=== PATIENT | male | born 1945 | race Caucasian/White ===

== ENCOUNTER 2023-01-11 16:41 | Emergency (ER) | payer MEDICARE ==
[~2023-01-11] VITALS: Ht 175.3 cm; Wt 84.6 kg
[2023-01-11] MEDS ORDERED: PROSCAR5 MG PO (17:19)
[2023-01-11] MEDS ORDERED: MAGNESIUM400 MG PO (17:20)
[2023-01-11] MEDS ORDERED: NEURONTIN100 MG PO (17:20)
[2023-01-11] MEDS ORDERED: MIRAPEX0.125 MG PO (17:21)
[2023-01-11] MEDS ORDERED: METOPROLOL TART50 MG PO (17:21)
[2023-01-11] MEDS ORDERED: OMEPRAZOLE20 MG PO (17:22)
[2023-01-11] MEDS ORDERED: METFORMIN HCL500 MG PO (17:22)
[2023-01-11] MEDS ORDERED: ALLOPURINOL100 MG PO (17:22)
[2023-01-11] MEDS ORDERED: NITROGLYCERIN0.4 MG SL (17:23)
[2023-01-11] MEDS ORDERED: FLUOXETINE HCL20 MG PO (17:23)
[2023-01-11 17:34] LABS: BASOPHILS 0.8 % (0-2); EOSINOPHILS 1.4 % (0-6); HEMATOCRIT 41.5 % (35.0-50.0); HEMOGLOBIN 13.6 g/dL (12.0-18.0); LYMPHOCYTES 7.3 % (24-44); MCH 31.9 (27-36); MCHC 32.7 g/dl (30-36); MCV 97.7 fl (81-99); MONOCYTES 12.5 % (0-12); PLATELET COUNT 178 K/uL (140-440); RBC 4.25 M/ul (4.3-5.7); RDW 14.5 (10.5-15.0)
[2023-01-11 17:44] LABS: ALBUMIN 3.8 g/dL (3.4-5.0); ALBUMIN/GLOBULIN RATIO 0.93 (1.1-2.4); ANION GAP 13.6 (7-21); BUN/CREATININE RATIO 13.04 (6.0-28.6); CREATININE, SERUM 1.15 mg/dL (0.70-1.30); MAGNESIUM 1.8 mg/dL (1.8-2.4); POTASSIUM 4.6 mmol/L (3.5-5.1); PROTEIN, TOTAL 7.9 g/dL (6.4-8.2)
[2023-01-11 17:56] LABS: BILIRUBIN, URINE NEGATIVE (negative); BLOOD/HGB, URINE NEGATIVE (Negative); KETONE, URINE NEGATIVE (Negative); LEUK ESTERASE, URINE NEGATIVE (negative); NITRITE, URINE NEGATIVE (negative)
[2023-01-11 18:04] LABS: BACTERIA, URINE NONE SEEN /hpf (negative); CASTS, URINE NONE SEEN \\lpf; COLLECTION TYPE, URINE CLEAN CATCH; CRYSTALS, URINE NONE SEEN (0-1+); EPITHELIAL CELLS, URINE SQUAMOUS 2+ /lpf (0-1+); REFLEX CULTURE, URINE No (No)
[2023-01-11 18:34] LABS: INFLUENZA B NAA NEGATIVE (NEGATIVE); RESPIRATORY SYNCYTIAL VIR NAA NEGATIVE (NEGATIVE)
[2023-01-11 19:00] VITALS: BP 107/94
--- NOTE | 2023-01-11 22:26 | EKG ---
[facility] [address] [facility] [place] [address] Signed Atrial fibrillation Rightward axis Cannot rule out Inferior infarct , age undetermined Abnormal ECG No previous ECGs available Confirmed by Garret Russell MD () on 01/11/2023 10:26:03 PM Electronically Signed By: GARRET RUSSELL MD 01/11/232225 PATIENT NAME: SANKET AVILA Electrocardiogram DATE OF : 41 PHYSICIAN: GARRET RUSSELL MD REPORT #: [id number] REPORT IS CONFIDENTIAL AND NOT TO BE RELEASED WITHOUT AUTHORIZATION
== END 2023-01-11 19:01 | disposition home or self-care (01) ==
LOC: ED 16:41
PROVIDERS: Emergency Medicine
DX: J10.1 Influenza due to other identified influenza virus with other respiratory manifestations (principal); U07.1 COVID-19; E10.9 Type 1 diabetes mellitus without complications; I10 Essential (primary) hypertension; J44.9 Chronic obstructive pulmonary disease, unspecified; Z95.1 Presence of aortocoronary bypass graft; Z88.8 Allergy status to other drugs, medicaments and biological substances; Z79.899 Other long term (current) drug therapy
CPT/HCPCS: 36415; 71045; 80053; 81001; 83735; 84484; 85025; 87502; 93005; 93010; C9803; J2405; U0002

== ENCOUNTER 2023-06-30 04:11 | Emergency (ER) | payer MEDICARE ==
[~2023-06-30] VITALS: Ht 175.3 cm; Wt 82.5 kg
[~2023-06-30 04:11] MED LIST: ALLOPURINOL100 MG PO; BUPROPION HCL100 MG PO; FERROUS SULFAT324 MG PO; FLUOXETINE HCL20 MG PO; FLUTICASONE-SA1 EAC4 INH; IRON CHEWS15 MG PO; LANTUS SOL100 UNIT/1 SUB-Q; LASIX20 MG PO; LISINOPRIL40 MG PO; MAGNESIUM400 MG PO; MECLIZINE HCL25 MG PO; METFORMIN HCL500 MG PO; METOPROLOL TART50 MG PO; MIRAPEX0.125 MG PO; NEURONTIN100 MG PO; NITROGLYCERIN0.4 MG SL; OMEPRAZOLE20 MG PO; PRAMIPEXOLE0.125 MG PO; PROSCAR5 MG PO
--- OUTSIDE RECORDS SUMMARY | 2023-06-30 04:14 | XMS ---
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 E.D. VISIT COUNT (12 MO.) 5 CINDY Mendoza TOTAL 7 NOTE: Visits indicate total known visits. ED/UCC VISIT TRACKING (12 MO.) 06/30/2023 04:12 CINDY [place] TYPE: Emergency COMPLAINT: - MEDICAL 06/08/2023 14:49 Legjuan a Mendoza [place] TYPE: Emergency DIAGNOSES: - Unspecified abdominal pain - FLANK PAIN 05/25/2023 16:04 Juan Diego [place] TYPE: Emergency DIAGNOSES: - Chronic obstructive pulmonary disease, unspecified - Dyspnea, unspecified - Heart failure, unspecified - SOB 04/11/2023 10:39 CINDY [place] TYPE: Emergency COMPLAINT: - R SIDE FACE WOUND, L KNEE PAIN 03/24/2023 07:52 CINDY [place] TYPE: Emergency COMPLAINT: - DIARRHEA DIAGNOSES: - Allergy status to other drugs, medicaments and biological substances - Atherosclerotic heart disease of [place] coronary artery without angina pectoris - Chronic obstructive pulmonary disease, unspecified - Contact with and (suspected) exposure to COVID-19 - Diarrhea, unspecified - Essential (primary) hypertension - FDC (current) use of insulin - FDC (current) use of oral hypoglycemic drugs - Other superintendent container terminal (current) drug therapy - Presence of aortocoronary bypass graft - Type 2 diabetes mellitus without complications 02/15/2023 09:28 CINDY [place] TYPE: Emergency COMPLAINT: - DIZZINESS DIAGNOSES: - Allergy status to other drugs, medicaments and biological substances - Chronic obstructive pulmonary disease, unspecified - Dizziness and giddiness - Essential (primary) hypertension - Hyperlipidemia, unspecified - medical terminologist (current) use of oral hypoglycemic drugs - Other superintendent container terminal (current) drug therapy - Type 2 diabetes mellitus without complications - Unspecified atrial fibrillation 01/11/2023 16:43 CINDY [place] TYPE: Emergency COMPLAINT: - WEAKNESS DIAGNOSES: - Allergy status to other drugs, medicaments and biological substances - Chronic obstructive pulmonary disease, unspecified - COVID-19 - Essential (primary) hypertension - Influenza due to other identified influenza virus with other respiratory manifestations - Other assisted (current) drug therapy - Presence of aortocoronary bypass graft - Type 1 diabetes mellitus without complications - Weakness INPATIENT VISIT TRACKING (12 MO.) No inpatient visits to display in this time frame [email or web address]
[2023-06-30 04:23] LABS: BASOPHILS 0.2 % (0-2); EOSINOPHILS 0.8 % (0-6); HEMATOCRIT 36.8 % (35.0-50.0); LYMPHOCYTES 5.5 % (24-44); MCH 32.4 (27-36); MCHC 32.6 g/dl (30-36); MCV 99.3 fl (81-99); MONOCYTES 5.2 % (0-12); NEUTROPHILS 88.3 % (39-80); PLATELET COUNT 197 K/uL (140-440); RBC 3.71 M/ul (4.3-5.7); RDW 14.2 (10.5-15.0)
[2023-06-30] MEDS ORDERED: ATROPINE SULFATE 1 MG/10 ML SYR IV ONE (04:30)
[2023-06-30] MEDS ORDERED: FAMOTIDINE 20 MG/ 2 ML VIAL IV ONE (04:30)
[2023-06-30 04:48] LABS: ALCOHOL, MEDICAL <3 ng/dL (<3); MAGNESIUM 2.2 mg/dL (1.8-2.4); TSH, 3RD GENERATION 4.263 uIU/mL (0.358-3.740)
[2023-06-30 05:00] LABS: ALBUMIN 3.5 g/dL (3.4-5.0); ALBUMIN/GLOBULIN RATIO 0.97 (1.1-2.4); ANION GAP 17.9 (7-21); BILIRUBIN, TOTAL 1.1 ng/dL (0.2-1.0); BUN/CREATININE RATIO 19.57 (6.0-28.6); CALCIUM 8.7 mg/dL (8.5-10.1); CREATININE, SERUM 2.81 mg/dL (0.70-1.30); POTASSIUM 5.9 mmol/L (3.5-5.1); PROTEIN, TOTAL 7.1 g/dL (6.4-8.2)
[2023-06-30 05:15] LABS: INFLUENZA B NAA NEGATIVE (NEGATIVE); RESPIRATORY SYNCYTIAL VIR NAA NEGATIVE (NEGATIVE)
[2023-06-30] MEDS ORDERED: FUROSEMIDE 40 MG/4 ML VIAL IV ONE (05:30)
[2023-06-30] MEDS ORDERED: CALCIUM GLUCONATE 2,000 MG in DEXTROSE 5% 100 ML IV ONE (05:45)
[2023-06-30] MEDS ORDERED: CALCIUM GLUCONATE 1,000 MG/10 ML VIAL ONE (05:47)
[2023-06-30] MEDS ORDERED: ALBUTEROL SULFATE 0.5% 2.5 MG/0.5 ML VIAL INH ONE (06:15)
[2023-06-30 08:17] VITALS: BP 104/52
--- NOTE | 2023-07-01 00:55 | EKG ---
[facility] [address] [facility] [place] [address] Signed Atrial fibrillation with slow ventricular response Possible Anterior infarct , age undetermined ST \T\ T wave abnormality, consider lateral ischemia Abnormal ECG When compared with ECG of 15-FEB-2023 09:42, Vent. rate has decreased BY 27 BPM Borderline criteria for Inferior infarct are no longer present ST now depressed in Anterior leads T wave inversion now evident in Anterior leads Confirmed by NITHIN HERNÁNDEZ MD ([id number]) on 07/01/2023 12:55:39 AM Electronically Signed By: NITHIN HERNÁNDEZ 07/01/23 0055 PATIENT NAME: SANKET AVILA Electrocardiogram DATE OF : 41 PHYSICIAN: NITHIN HERNÁNDEZ REPORT #: [id number] REPORT IS CONFIDENTIAL AND NOT TO BE RELEASED WITHOUT AUTHORIZATION
== END 2023-06-30 08:08 | disposition short-term general hospital (02) ==
LOC: ED 04:11
PROVIDERS: Internal Medicine
DX: I48.91 Unspecified atrial fibrillation (principal); E87.5 Hyperkalemia; T68.XXXA Hypothermia, initial encounter; R11.2 Nausea with vomiting, unspecified; R00.1 Bradycardia, unspecified; E11.9 Type 2 diabetes mellitus without complications; I10 Essential (primary) hypertension; E78.5 Hyperlipidemia, unspecified; J44.9 Chronic obstructive pulmonary disease, unspecified; X31.XXXA Exposure to excessive natural cold, initial encounter; Z88.8 Allergy status to other drugs, medicaments and biological substances; Z79.4 Long term (current) use of insulin; Z79.84 Long term (current) use of oral hypoglycemic drugs; Z79.899 Other long term (current) drug therapy
CPT/HCPCS: 71045; 80053; 83735; 83880; 84443; 84484; 85025; 87502; 93005; 93010; 96365; 96375; 99285-25; G0480; J0461; J0612; J1940; U0002

== ENCOUNTER 2025-01-22 16:58 | Inpatient (IN) | payer MEDICARE ==
[~2025-01-22] VITALS: Ht 175.3 cm; Wt 81.9 kg
--- NOTE | ~2025-01-22 | EKG ---
[facility] [address] [facility] [place], [place] [address] Draft EK completed, results pending confirmation PATIENT NAME: AUSTINSANKET Electrocardiogram DATE OF : 41 PHYSICIAN: PRELIMINARY REPORT #: [id number] REPORT IS CONFIDENTIAL AND NOT TO BE RELEASED WITHOUT AUTHORIZATION
[2025-01-22 18:00] LABS: BASOPHILS 0.4 % (0.2-1.2); EOSINOPHILS 1.6 % (0.8-7.0); LYMPHOCYTES 6.8 % (21.8-53.1); MCH 30.6 PG (25.7-32.2); MCHC 31.9 g/dL (32.3-36.5); MCV 95.8 fL (79.0-92.2); MONOCYTES 7.8 % (5.3-12.2); NEUTROPHILS 83.2 % (34.0-67.9); RBC 3.60 M/uL (4.63-6.08)
[2025-01-22 18:34] LABS: ALT (SGPT) 25.0 U/L (14-59); AST (SGOT) 28.0 U/L (15-37); GLOMERULAR FILTRATION RATE,EST 45.0 mL/min (>60); PROTEIN, TOTAL 8.1 g/dL (6.4-8.2); UREA NITROGEN 36.0 mg/dL (7-18)
[2025-01-22] MEDS ORDERED: FUROSEMIDE 100 MG/10 ML VIAL IV ONE (19:00)
[2025-01-22] MEDS ORDERED: POTASSIUM CHLORIDE 20 MEQ/15 ML CUP PO ONE (19:00)
[2025-01-22] MEDS ORDERED: PANTOPRAZOLE SODIUM 40 MG TABEC PO SCH (19:23)
[2025-01-22] MEDS ORDERED: FLUOXETINE HCL 20 MG CAP PO SCH (19:25)
[2025-01-22] MEDS ORDERED: ACETAMINOPHEN 325 MG TAB PO PRN (19:30)
[2025-01-22] MEDS ORDERED: MAGNESIUM SULFATE 2 GM/50 ML BAG IV ONE (19:45)
--- NOTE | 2025-01-22 20:35 | NUR ---
PT ARRIVES TO FLOOR VIA STRETCHER. PT ABLE TO STAND AND PIVOT TO BED WITH 1 PA. TOLERATED WELL. PT PROVIDED WITH ICE WATER. GRIP WRAPPER AT BEDSIDE COMPLETING ADMISSION. SCHEDULED MEDICATIONS ADMINISTERED. PT REPORTS PAIN 8/10TO BLE'S, PRN ADMINISTERED. PT DENIES FURTHER NEEDS AT THIS TIME. CALL LIGHT IN REACH AND GRIP WRAPPER REMAINS AT BEDSIDE.
[2025-01-22 20:37] VITALS: BP 129/77
[2025-01-22] MEDS ORDERED: GABAPENTIN 100 MG CAP PO SCH (21:00)
[2025-01-22] MEDS ORDERED: IBLOOD GLUCOSE TEST STRIP 1 EA TEST VI SCH (21:00)
[2025-01-22] MEDS ORDERED: INSULIN LISPRO 100 UNIT/ML ML SUB-Q SCH (21:00)
[2025-01-22] MEDS ORDERED: PRAMIPEXOLE DIHYDROCHLORIDE 0.25 MG TAB PO SCH (21:00)
[2025-01-22] MEDS ORDERED: ALBUTEROL SULFATE 0.083% 3 ML VIAL INH PRN (22:00)
--- NOTE | 2025-01-22 22:11 | NUR ---
PT ASSESSMENT COMPLETE. PT REPORTS PAIN IMPROVED TO 5/10 AFTER PRN ADMINISTRATION. PT REPORTS OCCASIONAL SOB, EDY AFTER MOVEMENT. O2 IN PLACE AT 2LPM VIA NC, CHRONIC FOR PT @ NOC. OCCASIONAL COUGH NOTED URING ASSESSMENT. PT REPORTS PHELGM PRODUCTION. LUNGS CLEAR TO AUSCLTATION. PT DENIES NAUSEA. 3+ PITTING EDEMA PRESENT TO BLE'S. PT REPORTS THIS HAS BEEN ONGOING FOR APPROXIMATELY 6 WEEKS. BLE'S WITH GENERALIZED REDNESS UP TO LEVEL OF THE THIGHS. PT STATES THIS IS ONGOING WELL BUT HAS WORSENED RECENTLY. PT REPORTS CHRONIC NEUROPATHY TO BLE'S. PT ICE WATER SLIGHTLY REFILLED. CHF EDUCATION PROVIDED. PT DENIES FURTHER QUESTIONS, CONCERNS, OR NEEDS AT THIS TIME. CALL LIGHT IN REACH.
--- NOTE | 2025-01-22 22:37 | NUR ---
PT ROUNDING, PT RESTING IN BED ON R SIDE. DOES NOT WAKE WHILE WATER QUALITY TECHNICIAN AT DOORWAY. CALL LIGHT IN REACH.
--- NOTE | 2025-01-22 23:15 | NUR ---
DRIVING TEACHER TO ROOM FOR BED ALARM SOUNDING. PT SITTING AT EDGE OF BED, STATES THAT HE NEEDS TO USE THE URINAL. PT STOOD AT EDGE OF BED AND USED THE URINAL WITH 1PA, TOLERATED WELL. EDUCATION PROVIDED RE: CALL LIGHT USE. PT STATES UNDERSTANDING. FURTHER NEEDS DENIED AT THIS TIME. CALL LIGHT IN REACH.
[2025-01-23] VITALS (12 sets, daily range): BP systolic 105–122; BP diastolic 56–77
--- NOTE | 2025-01-23 00:46 | NUR ---
PT ROUNDING. PT RESTING IN BED WITH EYES CLOSED. RESPIRATIONS EVEN AND UNLABORED. O2 IN PLACE. HR 77 PER TELEMETRY. PT DOES NOT WAKE WHILE TAWER AT DOORWAY. CALL LIGHT IN REACH.
--- NOTE | 2025-01-23 01:33 | NUR ---
PT UTILIZES CALL LIGHT, REQUESTS TO STAND AT EDGE OF BED TO USE THE URINAL. PT UP AND BACK TO BED WITH 1 PA. TOLERATED WELL. DENIES SHORTNESS OF BREATH WHILE UP. PT ASSESSMENT COMPLETE. PT SITS UP ON EDGE OF BED FOR ASSESSMENT, TOLERATED WELL. PT REPORTS PAIN TO BLE'S REMAINS 5/10, STATES THIS IS TOLERABLE. DENIES NAUSEA. OCCASIONAL COUGH REMAINS PRESENT DURING ASSESSMENT, PT REPORTS PRODUCTIVE. O2 IN PLACE AT 2LPM VIA NC. TELE #[address], AFIB, HR 70'S-80'S. BLE'S REMAIN RED WITH 3+ EDEMA PRESENT. UNCHANGED FROM PREVIOUS. PT ASSISTED TO LAY BACK IN BED. FEET ELVATED ON PILLOWS. PT REQUESTS POPSICLE, PROVDIDED. DENIES FURTHER NEEDS AT THIS TIME. CALL LIGHT IN REACH. BED ALARM ACTIVE.
--- NOTE | 2025-01-23 03:00 | NUR ---
PT UTILIZES CALL LIGHT, REQUESTS TO GET UP TO CHAIR. CHAIR ALARM PLACED. PT TRANSFERED TO CHAIR WITH 1 PA TOLERATED WELL. FEET ELEVATED ON PILLOWS. PT DENIES FURTHER NEEDS. CALL LIGHT AND PERSONAL ITEMS PLACED WITHIN REACH.
--- NOTE | 2025-01-23 04:13 | NUR ---
PT ROUNDING. PT RESTING IN CHAIR WITH EYES CLOSED. RESPIRATIONS EVEN AND UNLABORED. PT DOES NOT WAKE WHILE DIALYSIS RN AT BEDSIDE. CALL LIGHT IN REACH.
--- NOTE | 2025-01-23 04:55 | NUR ---
PT UTILIZES CALL LIGHT, STATES THAT HE SPILLED SOME WATER ON HIS BLANKET. NEW WARM BLANKET PROVIDED. VS OBTAINED, WNL. PT REQUESTS POPSICLE. DENIES FURTHER NEEDS. CALL LIGHT IN REACH.
[2025-01-23 05:27] LABS: BASOPHILS 0.4 % (0.2-1.2); EOSINOPHILS 1.9 % (0.8-7.0); LYMPHOCYTES 5.3 % (21.8-53.1); MCH 30.6 PG (25.7-32.2); MCHC 31.7 g/dL (32.3-36.5); MCV 96.7 fL (79.0-92.2); MONOCYTES 13.6 % (5.3-12.2); NEUTROPHILS 78.6 % (34.0-67.9); RBC 3.30 M/uL (4.63-6.08)
[2025-01-23 05:44] LABS: GLOMERULAR FILTRATION RATE,EST 46.0 mL/min (>60); UREA NITROGEN 34.0 mg/dL (7-18)
--- NOTE | 2025-01-23 07:02 | NUR ---
RECIEVED REPORT FROM NATALIO LOPEZ. PT IS RESTING IN CHAIR WITH EYES CLOSED. RR EVEN AND UNLABORED. CALL LIGHT AND PERSONAL BELONGINGS ARE WITHIN REACH.
[2025-01-23] MEDS ORDERED: FLUOXETINE HCL 10 MG CAP PO SCH (09:00)
[2025-01-23] MEDS ORDERED: FUROSEMIDE 40 MG TAB PO SCH (09:00)
--- NOTE | 2025-01-23 09:00 | NUR ---
PT'S BP MEDICATON WITHOUT PARAMATERS. PT BP THIS AM 112/70. PLACED CALL TO DR. HERNÁNDEZ CLARIFY ORDERS. GAVE ORDERS TO GIVE PT HALF OF MORNING AMLODIPINE, AND THE FULL DOSE OF LASIX. NO FURTHER ORDERS. PHONE CALL ENDED.
--- NOTE | 2025-01-23 11:09 | NUR ---
PT RESTING IN CHAIR, TALKING ON PHONE. BLE ELEVATED. CALL LIGHT AND PERSONAL BELONGINGS ARE WITHIN REACH.
[2025-01-23] MEDS ORDERED: PHARMACY RENAL DOSE ADJUSTMENT 1 DOSE MISC PO SCH (12:00)
--- NOTE | 2025-01-23 12:40 | NUR ---
PT SITTING UP IN BED WATCHING TV. PROVIDED POPSICLE, PER PT REQUEST. DENIES FURTHER NEEDS AT THIS TIME. CALL LIGHT AND PERSONAL BELONGINGS ARE WITHIN REACH.
--- NOTE | 2025-01-23 12:48 | NUR ---
PATIENT IS LYING IN BED WITH HOB ELEVATED. PATIENT WITH EYES OPEN AND RESPIRATIONS ARE EVEN AND UNLABORED. PATIENT LUNCH TRAY REMOVED AT THIS TIME. PATIENT IS REQUESTING A POPSICLE. PRIMARY RN NOTED. PATIENT STATED NO FURTHER NEEDS AT THIS TIME. CALL LIGHT AND PERSONAL BELONGINGS ARE WITHIN REACH.
--- NOTE | 2025-01-23 13:15 | NUR ---
ASSISTED PT BACK TO BED FROM CHAIR. HOB ELEVATED. BLE ELEVATED ON PILLOW. CALL LIGHT AND PERSONAL BELONGINGS ARE WITHIN REACH. PT DENIES ANY FURTHER NEEDS AT THIS TIME.
--- NOTE | 2025-01-23 14:10 | NUR ---
PATIENT BOOSTED AND REPOSITIONED UP IN BED WITH NATALIO CHEATHAM. PATIENT IS LYING IN BED WITH HOB ELEVATED. PATIENT WITH EYES OPEN AND RESPIRATIONS ARE EVEN AND UNLABORED. NC IN PLACE ON 1L. PATIENT STATED NO FURTHER NEEDS AT THIS TIME. CALL LIGHT AND PERSONAL BELONGINGS ARE WITHIN REACH.
--- NOTE | 2025-01-23 15:05 | NUR ---
PT REQUESTING SOMETHING FOR THROAT, STATING, "I JUST WANT SOMETHING TO SMOOTH IT OUT A LITTLE. CAN'T YOU HEAR IT?" PROVIDED PT WITH ICE WATER AND INSTRUCTED PT TO CALL IF THROAT DOES NOT IMPROVE. CALL LIGHT AND PERSONAL BELONGINGS ARE WITHIN REACH.
--- NOTE | 2025-01-23 15:57 | NUR ---
MED REC COMPLETED
--- NOTE | 2025-01-23 18:01 | NUR ---
PATIENT IS LYING IN BED WITH HOB ELEVATED. PATIENT WITH EYES OPEN AND RESPIRATIONS ARE EVEN AND UNLABORED. PATIENT REMAINS ON NC AT 1 L. FINN BECERRA IS IN THE ROOM AT THIS TIME. TV IS ON. CALL LIGHT AND PERSONAL BELONGINGS ARE WITHIN REACH.
--- NOTE | 2025-01-23 19:47 | NUR ---
PT USED THE URINAL IN BED, THIS RN EMPTIED THE URINAL. PT REPORTS NO OTHER NEEDS AT THIS TIME, CALL LIGHT WITHIN REACH.
--- NOTE | 2025-01-23 20:41 | NUR ---
ON 1L NC O2. LUNGS DIM AT BASES, MOIST PRODUCTIVE COUGH OF CLEAR/CREAMY PHLEGM AT TIMES. TACHYCHARDIA WITH EXERTION. TELE#[address] PLEASANT AND COOPERATIVE. CREAMY DISCHARGE NOTED L EYE, SCLERA RED. NO C/O VISUAL CHANGES. O2 NOT CHRONIC, USES AT HS SOMETIMES AT HOME. ABD SOFT, IRISH, EDEMA TO LE, ERYTHEMA BETWEEN THIGHS AND DOWN TO TOES, ELEVATED. SL RFA PATENT. MEDICATED WITH TYLENOL 650 MG PO C/O BACK PAIN AND TEMP 100.6. IS AT BEDSIDE, PT UNABLE TO USE. CONTINUE TO ENCOURAGE, REPOSITIONS SELF IN BED, USIGN URINAL, CLEAR URINE, QS CONCERNED THAT HE IS NOT URINATING ENOUGH. VOIDING QS PER PARAMETERS
--- NOTE | 2025-01-23 21:32 | NUR ---
PT CALLS FOR REPOSITIONING IN BED, COMPLETED. PT ALSO REQUESTS TEMPERATURE RECHECK, COMPLETED. PRIMARY RN NOTIFIED OF NEW TEMPERATURE. TEMP DOWN FROM 100.6 TO 99.4 ORAL, NO OTHER NEEDS AT THIS TIME, CALL LIGTH WITHIN REACH.
[2025-01-24 01:20] VITALS: BP 110/61
[2025-01-24 01:50] VITALS: BP 110/61
--- NOTE | 2025-01-24 03:20 | NUR ---
Used call light, choose not to wear O2 when up to BRP. up to BR, voided had a large soft brown bm, then voided again, did own shilo care, more improved gait, still unsteady , Back to bed, spot cpox 79% p90 on return. O2 3L on at this time, then back to 2L sats 92%. Was plasnt. Decreaed edema and redness to legs. Tolerating liquids well, Has used urinal
[2025-01-24 04:27] VITALS: BP 122/68
--- NOTE | 2025-01-24 04:35 | NUR ---
PT REQUESTING BLACK TEA, GIVEN. VS TAKEN, I&OS CHARTED. PT ASSISTED WITH TV. NO OTHER NEEDS AT THIS TIME, CALL LIGHT WITHIN REACH.
[2025-01-24 05:27] VITALS: BP 122/68
--- NOTE | 2025-01-24 05:27 | NUR ---
Resting, eyes closed, on 1LNC O2 at this time, no s/sx distress HOB and feet elevated
[2025-01-24 05:30] LABS: BASOPHILS 0.5 % (0.2-1.2); EOSINOPHILS 1.3 % (0.8-7.0); LYMPHOCYTES 10.2 % (21.8-53.1); MCH 30.9 PG (25.7-32.2); MCHC 32.0 g/dL (32.3-36.5); MCV 96.6 fL (79.0-92.2); MONOCYTES 19.1 % (5.3-12.2); NEUTROPHILS 68.4 % (34.0-67.9); RBC 3.27 M/uL (4.63-6.08)
[2025-01-24 06:00] LABS: GLOMERULAR FILTRATION RATE,EST 44.0 mL/min (>60); UREA NITROGEN 34.0 mg/dL (7-18)
--- NOTE | 2025-01-24 07:30 | NUR ---
MORNING REPORT RECIEVED FROM NATALIO BARAJAS. PT SITTING UP IN BED AWAKE AND ALERT AT THIS TIME, PT DENIES ANY CURRENT NEEDS AND HAS CALL LIGHT IN REACH, PT HAD NO ACUTE EVENTS IN THE NIGHT.
--- NOTE | 2025-01-24 09:15 | NUR ---
INTO SEE PATIENT. PATIENT PERSONAL HEALTH INFORMATION REVIEWED. PATIENT IS MOVING TO [place] WITH HIS GRANDDAUGHTER WHO IS A CAREGIVER. PATIENT USES A CANE AT BASELINE. DRIVES. PATIENT WILL NEED O2 TO GO HOME WITH. PATIENT CHOICE GIVEN. PATIENT WOULD LIKE TO USE [facility]. PATIENT GIVEN [employer] NUMBER TO TALK ABOUT RESOURCES. PATIENT WILL GO HOME WITH GRANDDAUGHTER WHEN MEDICALLY CLEARED FOR D/C. OXYGEN ORDER SIGNED BY . FAXED TO MARGIE. [facility] TO BRING UP OXYGEN TANK. NO FUTHER CM NEEDS AT THIS TIME.
[2025-01-24 09:43] VITALS: BP 105/44; BP 109/69
[2025-01-24 10:00] VITALS: BP 105/44
--- NOTE | 2025-01-24 10:09 | NUR ---
PT SITTING UP IN BED AT THIS TIME, PT HAS NO CURRENT NEEDS AND IS EXCITED TO BE GOING HOME TODAY, PT HAS CALL LIGHT IN REACH IF NEEDED.
--- NOTE | 2025-01-24 10:22 | NUR ---
UR CLINICAL REVIEW: 2 MN FOR [facility]ERSALUS-PER FLORAL DESIGNER MEETS OBS FOR CHF EXACERBATION WITH NEED FOR SUPPLEMENTAL OXYGEN AND DIURESIS. MEDICARE INPATIENT 01/22/25 @ 1932 ORDER MATCHES REG NO AUTH REQUIRED PER MEDICARE GUIDELINES DISCHARGE TO HOME WHEN STABLE 01/25/25 DC SUMMARY
--- NOTE | 2025-01-24 11:00 | NUR ---
PT IS CURRENTLY IN ROOM TAKING A SHOWER WITH CONTRACT SPECIALIST ASSISTANCE. PT IS TOLERATING WELL, PT DENIES NEEDS.
--- NOTE | 2025-01-24 11:31 | NUR ---
DAUGHTER RETURNS CALL. INFORMED HER PATIENT IS READY FOR DISCHARGE AND MARGIE IS IN FACILITY WITH PORTABLE TANK TO SEND WITH HIM AND THEY WILL SET UP OXYGEN AT HOME TODAY. STATES SHE WILL COME TO PICK PATIENT UP IN ABOUT 20 MINUTES, NATALIO CHEATHAM, UPDATED.
--- NOTE | 2025-01-24 12:18 | NUR ---
PT HOME LASIX FOUND IN THE LOCK BOX, PT WAS CONTACTED AND TOLD THEY MAY RN INTEGRATED THE MEDICATION AT THE EGG TESTER.
== END 2025-01-24 11:45 | disposition home or self-care (01) | DRG 291 ==
LOC: ED 16:58 → MS 17:00
PROVIDERS: Emergency Medicine; ADMIT Internal Medicine; ATTEND Internal Medicine
DX: I11.0 Hypertensive heart disease with heart failure (principal); I50.31 Acute diastolic (congestive) heart failure; E11.9 Type 2 diabetes mellitus without complications; I48.91 Unspecified atrial fibrillation; E78.5 Hyperlipidemia, unspecified; J44.9 Chronic obstructive pulmonary disease, unspecified; D64.9 Anemia, unspecified; Z85.828 Personal history of other malignant neoplasm of skin; Z87.442 Personal history of urinary calculi; Z79.4 Long term (current) use of insulin; Z87.891 Personal history of nicotine dependence; Z95.5 Presence of coronary angioplasty implant and graft; Z95.1 Presence of aortocoronary bypass graft; Z98.890 Other specified postprocedural states; Z98.41 Cataract extraction status, right eye; Z98.42 Cataract extraction status, left eye; Z90.49 Acquired absence of other specified parts of digestive tract; Z88.8 Allergy status to other drugs, medicaments and biological substances; Z79.899 Other long term (current) drug therapy; Z91.198 Patient's noncompliance with other medical treatment and regimen for other reason
CPT/HCPCS: 36415; 71045; 80048; 80053; 83036; 83735; 83880; 84484; 85025; 93005; 93010; 94761; 96374; 99284-25; A9270; J1815; J1938; J3475